=== PATIENT | male | born 1995 | race Two or more races ===

== ENCOUNTER 2020-07-25 19:54 | Emergency (ER) | payer SELFPAY ==
[~2020-07-25] VITALS: Ht 172.7 cm; Wt 99.8 kg
[2020-07-25 20:05] VITALS: BP 127/86
--- NOTE | 2020-07-25 20:10 | Emergency Room Report ---
History of Present Illness General Chief Complaint: Male Urogenital Problems Source: Patient Present Illness [facility] Disclaimer: Please note that this report is being documented using [employer] technology. This can lead to erroneous entry secondary to incorrect interpretation by the dictating instrument. HPI: Is a 24-year-old male presenting for evaluation of STD exposure. States his girlfriend tested positive for chlamydia last week. Patient has no symptoms denies penile discharge, testicular pain, dysuria, hematuria, fever, chills, clarita pain, nausea, vomiting. He has had unprotected sexual intercourse with her over the past week. No other medical history or complaints at this time. 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 EOMI. Resp: Normal work of breathing Skin: Intact. No abrasions, laceration or rash over the exposed skin MSK: Normal tone and bulk. Moving all extremities. No obvious deformity. Neuro: Awake and alert. Mentating appropriately Medical Decision Making Diagnostic Impression: Primary Impression: STD exposure ER Course 24-year-old male presents for evaluation after his grandson tested positive for chlamydia last week. Patient is asymptomatic. Will be treated with ceftriaxone and azithromycin prophylactically. He is encouraged to follow-up with STD clinic for testing of other sexually transmitted diseases including but not limited to HIV, hepatitis, etc. We will follow-up on an outpatient basis. Discussed reasons to return to the ED. He understands and agrees with this treatment plan. Last Vital Signs Date Time Temp Pulse Resp B/P (MAP) Pulse Ox O2 Delivery O2 Flow Rate FiO2 07/25/20 19:56 98.6 73 20 134/89 (104) 97 Room Air Disposition: HOME, SELF-CARE Condition: Stable Referrals: [facility] *Patients are seen by appointment only* [facility] [place] [facility] Patient Instructions: Chlamydia, Male Additional Instructions: Please follow-up with one of the clinics listed here in your discharge paperwork for STD testing including HIV, hepatitis, herpes virus, syphilis, chlamydia, gonorrhea among others. Refrain from sexual contact until you obtain these results. Notify all sexual partners of any positive results. Return to the emergency department new or worsening symptoms. Please follow-up with your primary care doctor in the next 1 to 3 days to discuss this emergency department visit and for reevaluation. If you have any new or worsening symptoms please return to the emergency department for reevaluation. Please note that this report is being documented using [employer] technology. This can lead to erroneous entry secondary to incorrect interpretation by the dictating instrument. Gray Fierro MD Jul 25, 2020 20:10
[2020-07-25] MEDS ORDERED: Azithromycin 250mg tab ORAL ONE (20:15)
[2020-07-25] MEDS ORDERED: Lidocaine 1% MPF 10mg/ml 5ml INJ ONE (20:15)
[2020-07-25 20:18] VITALS: BP 129/86
== END 2020-07-25 20:18 | disposition home or self-care (01) ==
LOC: EMR 20:05
DX: Z20.2 Contact with and (suspected) exposure to infections with a predominantly sexual mode of transmission (principal)
CPT/HCPCS: 96372; 96374; 99284; J0696